=== PATIENT | female | born 1985 | race Caucasian/White ===

== ENCOUNTER 2025-07-23 23:52 | Emergency (ER) | payer OTHER, SELFPAY ==
[2025-07-23 23:53] VITALS: PULSE 97; RESP 18; TEMP 36.2; O2SAT 100
[2025-07-24 00:29] LABS: Alanine Aminotransferase 11 U/L (6-35); Albumin Level 3.9 g/dL (3.5-5.1); Alkaline Phosphatase 139 U/L (38-126); Anion Gap 7 mmol/L (4-12); Aspartate Amino Transferase 20 U/L (14-36); Bilirubin,Total 0.4 mg/dL (0.2-1.3); Blood Urea Nitrogen 11 mg/dL (7-17); Calcium 8.8 mg/dL (8.4-10.2); Carbon Dioxide 17 mmol/L (22-30); Chloride 107 mmol/L (98-107); Estimated CRCL calculation 113 ml/min; Estimated Glomerular Filt Rate > 60; Glucose 104 mg/dL (65-110); Potassium 3.9 mmol/L (3.4-5.0); Sodium 131 mmol/L (137-145); Total Protein 7.6 g/dL (6.3-8.2)
[2025-07-24 00:41] LABS: Hematocrit 33.2 % (37.0-47.0); Hemoglobin 11.2 g/dL (12.0-15.0); Immature Granulocyte Percent A 2.4 % (0-0.5); Lymphocytes Absolute Auto 2.37 K/mm3 (0.9-3.2); Mean Corpuscular HGB Conc 33.7 g/dl (32-36); Mean Corpuscular Hemoglobin 33.1 pg (26-34); Mean Corpuscular Volume 98.2 fl (80-100); Nucleated Red Blood Cells Absolute Auto 0.000 K/mm3 (0.0-0.012); Nucleated Red Blood Cells Perc 0.0 % (0.0-0.2); Platelet Count Result 353 k/mm3 (150-375); Red Blood Count 3.38 M/mm3 (4.2-5.4); White Blood Count 11.8 K/mm3 (4.5-10.0)
[2025-07-24] MEDS: HYDROmorphone HCL INJ (*CRX) 1 MG/ML SYR 0.5 MG IM (00:49)
[2025-07-24] MEDS: METOCLOPRAMIDE HCL INJ 10 MG/2 ML VIAL IM (00:53)
--- OUTSIDE RECORDS SUMMARY | 2025-07-24 00:56 | XMS_ITS | Clinical Summary ---
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 elderly multigravida Z36.2: Encounter for other screening follow-up O35.5XX0: Maternal care for (suspected) damage to fetus by drugs Procedures 67634: US Preg Uterus Follow Up [facility] PACS Anatomical Region Laterality Modality Other 07/11/2025 9:51 AM CDT Gaurav Park MD [facility] ORDERABLES Edited Result - Final * (ABNORMAL) AMPHETAMINE URINE CONFIRMATION (06/27/2025 10:38 AM CDT) Only the most recent of3 resultswithin the time period is included. Amphetamines Confirmation Urine Positive( A) 07/04/2025 2:07 AM CDT [facility] ([facility]) Comment: Please Note: 01 Amphetamine test includes Amphetamine and Methamphetamine. Amphetamine Positive A 01 Amphetamine Conf, MS, UR 2896 ng/mL Iyjquq=406 01 Methamphetamine Negative Buxdgc=925 01 Urine URINE / Unknown Collection / Unknown 06/27/2025 10:38 AM CDT 06/27/2025 11:46 AM CDT Narrative [facility] ([facility]) - 07/04/2025 2:07 AM CDT Performed at: 01 - [facility] [address] [facility], [place], [place] [id number] Admin Dir: Jurgen Linda PhD, Phone: [phone] Frida Ford APRN-WEAVER [facility] - URINE CHEMISTRY ORDERABLES Final Result [facility] ([facility]) [address] [place] [address] * SYPHILIS ANTIBODY CASCADING REFLEX (06/12/2025 12:12 PM CDT) Treponema pallidum Antibody Non Reactive Non Reactive 06/12/2025 1:22 PM CDT [facility] Comment: No Laboratory evidence of syphilis infection. Note: Circulating antibodies may be low or undetectable in early infection. If recent exposure is suspected, re-draw sample in 2-4 weeks and repeat testing. Blood BLOOD SPECIMEN / Unknown Venipuncture / Unknown 06/12/2025 12:12 PM CDT 06/12/2025 12:29 PM CDT us Frida Ford APRN-WE[facility] - SEROLOGY ORDERAB LES Final Result [facility] [address] [place] [address] * HIV-1 HIV-2 ANTIBODY + HIV P24 AG PANEL (06/12/2025 12:12 PM CDT) HIV1/2 Ab + P24 Ag Non Reactive Non Reactive 06/12/2025 1:22 PM CDT [facility] Blood BLOOD SPECIMEN / Unknown Venipuncture / Unknown 06/12/2025 12:12 PM CDT 06/12/2025 12:30 PM CDT Narrative [facility] - 06/12/2025 1:22 PM CDT No Laboratory evidence of HIV infection. Frida Ford FILM OR VIDEOTAPE EDITOR-WEAVER [facility] - CHEMISTRY ORDERA BLES Final Result [facility] [address], [place] [id number] * HEPATITIS C RNA QUANTITATIVE (06/12/2025 12:12 PM CDT) [facility] Hepatitis C RNA PCR, Interp Not detected Not detected 06/14/2025 9:54 AM CDT [facility] Hepatitis C Quant by PCR, Log NA log IU/mL 06/14/2025 9:54 AM CDT [facility] Blood BLOOD SPECIMEN / Unknown Venipuncture / Unknown 06/12/2025 12:12 PM CDT 06/12/2025 12:29 PM CDT Narrative [facility] - 06/14/2025 9:54 AM CDT The Hepatitis C viral (HCV) RNA analysis utilized a serum sample, real-time reverse general internist and physician leader PCR, and is reported as Not Detected, Detected (<15 IU/mL), Quantity (IU/mL) or >100,000,000 IU/mL. The analytic sensitivity (LOD) of the assay is 15 IU/mL. The linear range is from 15 IU/mL to 100,000,000 IU/mL. Values less than 15 IU/mL are reported as Detected (<15 IU/mL). Values greater than 100,000,000 IU/mL are reported as >100,000,000 IU/mL. The detection/quantitation of HCV RNA in serum is based on the isolation of HCV RNA with reverse general internist and physician leader of genomic HCV RNA followed by real-time PCR in the presence of an unrelated RNA internal control. The internal control ensures that RNA is isolated, and that no general significant inhibitors of the RT-PCR process are present. The analysis was performed using a [place]. FDA approved test methodology Matt hermilo HCV. Frida Ford FILM OR VIDEOTAPE EDITOR-WEAVER [facility] - CHEMISTRY ORDERA BLES Final Result [facility] [address] [place] [address], [facility] [phone] * (ABNORMAL) CBC W AUTO DIFFERENTIAL (06/12/2025 12:12 PM CDT) WBC 8.4 4.0 - 10.7 x10E9/L 06/12/2025 12:50 PM CDT [facility] RBC Count 3.25(L) 3.90 - 5.20 x10E12/L 06/12/2025 12:50 PM CDT [facility] Hemoglobin 10.9(L) 11.9 - 15.8 g/dL 06/12/2025 12:50 PM CDT [facility] Hematocrit 31.2(L) 34.8 - 46.1 % 06/12/2025 12:50 PM CDT [facility] MCV 96.0 80.0 - 98.0 fL 06/12/2025 12:50 PM CDT [facility] MCH 33.5 26.7 - 33.6 pg 06/12/2025 12:50 PM CDT [facility] MCHC 34.9 31.7 - 36.3 g/dL 06/12/2025 12:50 PM CDT [facility] RDW-CV 13.8 11.3 - 14.8 % 06/12/2025 12:50 PM CDT [facility] Platelet Count 344 150 - 420 x10E9/L 06/12/2025 12:50 PM CDT [facility] MPV 9.7 7.8 - 11.4 fL 06/12/2025 12:50 PM CDT [facility] Neutrophil % 63.2 41.0 - 74.0 % 06/12/2025 12:50 PM CDT [facility] Lymphocyte % 27.2 17.0 - 47.0 % 06/12/2025 12:50 PM CDT [facility] Monocyte % 6.7 3.0 - 11.0 % 06/12/2025 12:50 PM CDT [facility] Eosinophil % 1.3 0.0 - 7.0 % 06/12/2025 12:50 PM CDT [facility] Basophil % 0.5 0.0 - 1.6 % 06/12/2025 12:50 PM CDT [facility] Immature Granulocytes % 1.1(H) 0.0 - 1.0 % 06/12/2025 12:50 PM CDT [facility] Neutrophil Absolute 5.33 1.60 - 7.50 x10E9/L 06/12/2025 12:50 PM CDT [facility] Lymphocyte Absolute 2.29 1.00 - 4.40 x10E9/L 06/12/2025 12:50 PM CDT [facility] Monocyte Absolute 0.56 0.15 - 1.00 x10E9/L 06/12/2025 12:50 PM CDT [facility] Eosinophil Absolute 0.11 0.00 - 0.60 x10E9/L 06/12/2025 12:50 PM CDT [facility] Basophil Absolute 0.04 0.00 - 0.13 x10E9/L 06/12/2025 12:50 PM CDT [facility] Blood BLOOD SPECIMEN / Unknown Venipuncture / Unknown 06/12/2025 12:12 PM CDT 06/12/2025 12:29 PM CDT Frida Ford FILM OR VIDEOTAPE EDITOR-WEAVER [facility] - HEMATOLOGY ORDER JOYCE Final Result [facility] [address] [place] [address] * (ABNORMAL) COMPREHENSIVE METABOLIC PANEL (06/12/2025 12:05 PM CDT) Glucose 122(H) 70 - 99 mg/dL 06/12/2025 1:07 PM CDT [facility] Sodium 136 136 - 145 mmol/L 06/12/2025 1:07 PM CDT [facility] Potassium 3.5 3.5 - 5.1 mmol/L 06/12/2025 1:07 PM CDT [facility] Chloride 107 98 - 107 mmol/L 06/12/2025 1:07 PM CDT [facility] CO2 19(L) 22 - 29 mmol/L 06/12/2025 1:07 PM CDT [facility] Calcium 8.8 8.4 - 10.4 mg/dL 06/12/2025 1:07 PM T [facility] Anion Gap 10 6 - 16 mmol/L 06/12/2025 1:07 PM CDT [facility] BUN 9 5.3 - 18.7 mg/dL 06/12/2025 1:07 PM CDT [facility] Creatinine 0.64 0.57 - 1.11 mg/dL 06/12/2025 1:07 PM T [facility] Alkaline Phosphatase 82 40 - 150 U/L 06/12/2025 1:07 PM T [facility] ALT 7 6 - 57 U/L 06/12/2025 1:07 PM T [facility] AST 13 10 - 48 U/L 06/12/2025 1:07 PM T [facility] Protein Total 6.9 6.4 - 8.3 gm/dL 06/12/2025 1:07 PM T [facility] Albumin 3.2 3.1 - 4.5 gm/dL 06/12/2025 1:07 PM [facility] Bilirubin Total 0.2 0.2 - 1.2 mg/dL 06/12/2025 1:07 PM [facility] eGFR by CKD-EPI >90 >=90 mL/min/1.7 3 m2 06/12/2025 1:07 PM [facility] Comment:Estimated Glomerular Filtration Rate (eGFR) calculated using the CKD-EPI Creatinine Equation (2020), per the National Kidney Foundation and [place] [employer] Neph[employer] recommendations. Blood BLOOD SPECIMEN / Unknown Venipuncture / Unknown 06/12/2025 12:05 PM CDT 06/12/2025 12:28 PM CDT us Frida Ford FILM OR VIDEOTAPE EDITOR-WEAVER [facility] - CHEMISTRY ORDERA BLES Final Result [facility] [address] [place] [address] * GLUCOSE CHALLENGE (06/12/2025 12:05 PM CDT) [facility] Glucose Challenge 122 64 - 140 mg/dL 06/12/2025 1:08 PM CDT [facility] Glucose Challenge Time 06/12/2025 1:08 PM CDT [facility] Blood BLOOD SPECIMEN / Unknown Venipuncture / Unknown 06/12/2025 12:05 PM CDT 06/12/2025 12:28 PM CDT Frida Mejiamaria del rosario FILM OR VIDEOTAPE EDITOR-WEAVER [facility]RE C[facility] - CHEMISTRY ORDERA BLES Final Result Performing Organization Address City/State/[facility] Co de Phone Number [facility] [address] [place] [address] * (ABNORMAL) CULTURE URINE (05/15/2025 3:03 PM CDT) [facility] Culture Urine >100,000 CFU/mL Escherichia coli(A) RAN 05/17/2025 6:09 AM CDT [facility] Urine URINE SPECIMEN OBTAINED BY CLEAN CATCH PROCEDURE / Unknown Collection / Unknown 05/15/2025 3:03 PM CDT 05/15/2025 3:11 PM CDT Narrative Organism Antibiotic Method Susceptibility Escherichia coli Amikacin RAN 4 ug/mL: Susceptible Escherichia coli Ampicillin RAN 4 ug/mL: Susceptible Escherichia coli Ampicillin-sulbactam RAN <=2 ug/mL: Susceptible Escherichia coli Cefazolin RAN <=4 ug/mL: See Comment* Escherichia coli Cefazolin-Urine (uncomplicated infections ONLY) RAN <=4 ug/mL: Susceptible Escherichia coli Cefepime RAN <=1 ug/mL: Susceptible Escherichia coli Ceftriaxone RAN <=1 ug/mL: Susceptible Escherichia coli Ciprofloxacin RAN >=4 ug/mL: Resistant Escherichia coli Gentamicin RAN <=1 ug/mL: Susceptible Escherichia coli Meropenem RAN <=0.25 ug/mL: Susceptible Escherichia coli Nitrofurantoin RAN <=16 ug/mL: Susceptible Escherichia coli Piperacillin-tazobactam RAN <=4 ug/mL: Susceptible Escherichia coli Tobramycin RAN <=1 ug/mL: Susceptible Escherichia coli Trimethoprim-sulfame thoxaz ole RAN >=320 ug/mL: Resistant Comment: *Cefazolin RAN of </=4 cannot distinguish between susceptible or intermediate for systemic breakpoints. If further defined interpretation is needed, call Microbiology and a disk diffusion test will be performed. Urine breakpoints for cefazolin should only be used when treating uncomplicated UTIs including men and women without urologic abnormality, kidney stones, stents, nephrostomy tubes, signs/symptoms of systemic illness, or pelvic/perineal pain in men. Cefazolin results can be used to predict susceptibility to oral cephalosporins - cephalexin, cefprozil, cefaclor, cefuroxime, cefdinir, and cefpodoxime. For complicated UTIs, use alternative cefazolin susceptibility result above. Frida Ford FILM OR VIDEOTAPE EDITOR-WEAVER [facility]RE CORD [facility] - MICROBIOLOGY ORD ERABLES Final Result [facility] [address] [place] [address], [facility] [phone] * PAP IG LB+HPV APTIMA (02/06/2025 2:25 PM CDT) Diagnosis Comment 02/12/2025 10:09 AM CDT [facility] ([facility]) Comment: NEGATIVE FOR INTRAEPITHELIAL LESION OR MALIGNANCY. THIS SPECIMEN WAS RESCREENED PART OF OUR VACUUM EXTRACTOR OPERATOR PROGRAM. Specimen Adequacy Comment 025 10:09 AM CDT [facility] ([facility]) Comment: Satisfactory for evaluation. Endocervical and/or squamous metaplastic cells (endocervical component) are present. Performed by Comment 02/12/2025 10:09 AM CDT [facility] ([facility]) Comment:Manjinder Nascimento chnologist ([facility]) QC Reviewed by Comment 02/12/2025 10:09 AM CDT [facility] ([facility]) Comment:Blu Collazo totechnologist ([facility]) Comment . 02/12/2025 10:09 AM CDT [facility] ([facility]) Note Comment 02/12/2025 10:09 AM CDT [facility] ([facility]) Comment: The Pap smear is a screening test designed to aid in the detection of premalignant and malignant conditions of the uterine cervix. It is not a diagnostic procedure and should not be used as the sole means of detecting cervical cancer. Both false-positive and false-negative reports do occur. IGLBP CPT Code Automation Comment 02/12/2025 10:09 AM CDT [facility] ([facility]) Comment: This liquid based ThinPrep(R) pap test was screened with the use of an image guided system. Human papillomavirus Aptima Negative Negative 02/12/2025 10:09 AM CDT [facility] ([facility]) Comment: This nucleic acid amplification test detects fourteen high-risk HPV types (16,18,31,33,35,39,45,51,52,56,58,59,66,68) without differentiation. Pathology/Cytolo gy ENTIRE ENDOCERVIX / Unknown Collection / Unknown 02/06/2025 2:25 PM CDT 02/06/2025 2:43 PM CDT Narrative [facility] ([facility]) - 02/12/2025 10:09 AM CDT Performed at: 01 - [address] [id number] Admin Dir: Gabi Campbell MD, Phone: [phone] Performed at: - [address] [id number] Admin Dir: Gabi Campbell MD, Phone: [phone] Specimen Comment: No. of containers..01 ThinPrep Vial Frida Ford FILM OR VIDEOTAPE EDITOR-WEAVER [facility]RE CORD LAB - PATHOLOGY/CYTOLO GY ORDERABLES Final Result [facility] ([facility]) [address] [place] [address] from Last 3 Months or Most Recently Relevant to Health Maintenance Insurance MEDICAID [facility] MEDICAID [employer] [facility] [place] MEDICAID [employer] [facility] [place] MED[place]ID [employer] [facility] [place] MEDICAID [facility] Advance Directives * Full Code (Latest Code Status on File) Date Activated Date Inactivated Comments 06/19/2024 5:34 PM 06/20/2024 12:35 PM * Full Code Date Activated Date Inactivated Comments 03/22/2022 11:01 PM 03/24/2022 1:27 PM * Full Code Date Activated Date Inactivated Comments 03/17/2022 9:16 AM 03/17/2022 3:16 PM * Full Code Date Activated Date Inactivated Comments 02/13/2022 4:04 PM 02/13/2022 7:08 PM * Full Code Date Activated Date Inactivated Comments 02/05/2022 5:16 PM 02/05/2022 6:29 PM Care Teams Coordinator Of Genetic Services Relationship Specialty Start Date End Date Wallace Vazquez MD [address] [place] [phone] PCP - General Obstetrics and Gynecology 11/04/23 Hollie Tovar LCSW Outpatient At Risk Paraprofessional 02/20/25
--- OUTSIDE RECORDS SUMMARY | 2025-07-24 00:56 | XMS_ITS ---
Author Organization Unknown ENCOUNTERS Encounter Performer Location Date Diagnosis Diagnosis Status Pre Admit [place] [id number] [place] [id number] Emergency [facility] [address] [place] [id number] *Note: Encounters from your own facility or health system may be excluded. Allergies, Adverse Reactions, Alerts Allergen Type Severity Identification Date Penicillins drug allergy 4 [id number] Medications Name Date Quantity Days Supplied GPI Number
--- OUTSIDE RECORDS SUMMARY | 2025-07-24 00:56 | XMS_ITS | Patient Health Record ---
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 benefits as well as alternative treatments as previously discussed and with the above recommended medications & other aspects of the treatment program. Agrees to return sooner if symptoms worsen or suicidal or homicidal ideations occur. Labs monitored by PCP. 12/05/2024 Screening for diabetes mellitus (ICD-10 - Z13.1) 12/05/2024 Screening for hyperlipidemia (ICD-10 - Z13.220) 01/02/2025 Medication management (ICD-10 - Z79.899) May self-administer medications or be administered own oral medications per [facility] protocols. Provided informed consent with understanding of side effects, adverse effects, risks and benefits as well as alternative treatments as previously discussed and with the above recommended medications & other aspects of the treatment program. Agrees to return sooner if symptoms worsen or suicidal or homicidal ideations occur. Labs monitored by PCP. 01/16/2025 Medication management (ICD-10 - Z79.899) May self-administer medications or be administered own oral medications per [facility] protocols. Provided informed consent with understanding of side effects, adverse effects, risks and benefits as well as alternative treatments as previously discussed and with the above recommended medications & other aspects of the treatment program. Agrees to return sooner if symptoms worsen or suicidal or homicidal ideations occur. Labs monitored by PCP. 01/25/2025 Screening for metabolic disorder (ICD-10 - Z13.228) 01/29/2025 (ICD-10 - Z33.1) 02/19/2025 (ICD-10 - Z33.1) Client is due around 09/07/2025. Follow treatment plan and all recommendations of curing pickling packer. 03/21/2025 (ICD-10 - Z33.1) Client is due around 09/07/2025. Follow treatment plan and all recommendations of curing pickling packer. 04/18/2025 (ICD-10 - Z33.1) Client is due around 09/07/2025. Follow treatment plan and all recommendations of curing pickling packer. 05/29/2025 (ICD-10 - Z33.1) Client is due around 09/07/2025. Follow treatment plan and all recommendations of curing pickling packer. 05/29/2025 Medication management (ICD-10 - Z79.899) May self-administer medications or be administered own oral medications per [facility] protocols. Provided informed consent with understanding of side effects, adverse effects, risks and benefits as well as alternative treatments as previously discussed and with the above recommended medications & other aspects of the treatment program. Agrees to return sooner if symptoms worsen or suicidal or homicidal ideations occur. 04/18/2025 Medication management (ICD-10 - Z79.899) May self-administer medications or be administered own oral medications per [facility] protocols. Provided informed consent with understanding of side effects, adverse effects, risks and benefits as well as alternative treatments as previously discussed and with the above recommended medications & other aspects of the treatment program. Agrees to return sooner if symptoms worsen or suicidal or homicidal ideations occur. 03/21/2025 Medication management (ICD-10 - Z79.899) May self-administer medications or be administered own oral medications per [facility] protocols. Provided informed consent with understanding of side effects, adverse effects, risks and benefits as well as alternative treatments as previously discussed and with the above recommended medications & other aspects of the treatment program. Agrees to return sooner if symptoms worsen or suicidal or homicidal ideations occur. 02/19/2025 Medication management (ICD-10 - Z79.899) May self-administer medications or be administered own oral medications per [facility] protocols. Provided informed consent with understanding of side effects, adverse effects, risks and benefits as well as alternative treatments as previously discussed and with the above recommended medications & other aspects of the treatment program. Agrees to return sooner if symptoms worsen or suicidal or homicidal ideations occur. 01/29/2025 Medication management (ICD-10 - Z79.899) 01/25/2025 Screening for thyroid disorder (ICD-10 - Z13.29) 12/05/2024 Exposure to potential infection (ICD-10 - Z20.9) 11/29/2024 Other JAGDEEP obtained for records from [employer]. Patient agrees to take medication as prescribed. Discussed medication side effects, adverse effects, risks, benefits, as well as interactions. Encouraged non-use of opioids and other illicit substances. Has naloxone. Discontinuing buprenorphine increases the risk of overdose upon return to illicit opioid use. Use of alcohol or benzodiazepines with buprenorphine increases the risk of overdose and . Education provided about safe storage of medications. Encouraged participation in recovery groups/counseling services. Contact office with questions or concerns. Agrees to return to office in 28 days for next injection. 12/27/2024 Other Discussed positive coping mechanisms. Patient agrees to take medication as prescribed. Discussed medication side effects, adverse effects, risks, benefits, as well as interactions. Encouraged non-use of opioids and other illicit substances. Has naloxone. Discontinuing buprenorphine increases the risk of overdose upon return to illicit opioid use. Use of alcohol or benzodiazepines with buprenorphine increases the risk of overdose and . Education provided about safe storage of medications. Encouraged participation in recovery groups/counseling services. Contact office with questions or concerns. Agrees to return in 28 days for next injection. Patient may self-administe r their own oral medications per [facility] Protocol. 01/23/2025 Other Provided patient with contact information for [facility]. Discussed option to switch to Subutex. Per [employer], The buprenorphine monoproduct has been recommended during to avoid any potential exposure to naloxone, especially if injected. However, recent studies that evaluated the use of the combination product buprenorphine with naloxone found no adverse effects, and outcomes were similar when compared with buprenorphine alone. 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 Patient agrees to take medication as prescribed. Discussed medication side effects, adverse effects, risks, benefits, as well as interactions. Encouraged non-use of opioids and other illicit substances. Has naloxone. Discontinuing buprenorphine increases the risk of overdose upon return to illicit opioid use. Use of alcohol or benzodiazepines with buprenorphine increases the risk of overdose and . Education provided about safe storage of medications. Encouraged participation in recovery groups/counseling services. Contact office with questions or concerns. Plan Of Treatment No Information Insurance Providers Payer Name Payer Address Payer Phone Subscriber Number Group Number Insured Name Patient Relationship to Insured Coverage Start Date Coverage End Date [facility] [employer] [facility] [address] [place] [address] [phone] [id number] Neli Felder Self - patient [facility] the insured [facility] [address] [place] [address] [id number] Neli Felder Self - patient is the insured Medications Administered Medication Instructions Date of Administration Dosage Notes Sublocade 11/29/2024 300 mg Front Desk Supervisor: Lulú Frye 11/29/2024 03:08:14 PM GEOSCIENCES PROFESSOR >Pt tolerated well. No s&S of adverse reaction. Sublocade 12/27/2024 300 mg Carline Ayala RN 12/27/2024 04:43:03 PM GEOSCIENCES PROFESSOR >pt tolerated well. Medical (General) History Medical History History ICD Code add and adhd bipolar anxiety Hep C antibodies depression Surgical History Surgery Date(Month/Year) Hospitalization History Reason Date(Month/Year) Hepatitis C 2004
--- NOTE | 2025-07-24 00:57 | PC.NURSE ---
Pt made aware need urine sample, pt provided with blanket.
[2025-07-24 01:33] LABS: Add Urine Microscopic? YES; Appearance Urine Clear (Clear); Glucose Urine UA Negative (Negative); Leukocyte Esterase Ur Trace LEU/UL (Negative); Nitrate Urine Negative (Negative); Specific Grav Ur 1.020 (1.001-1.035)
[2025-07-24 02:09] VITALS: BP 106/61; PULSE 96; RESP 16; O2SAT 97
[2025-07-24 02:12] VITALS: BP 106/61; PULSE 88; RESP 16; O2SAT 96
--- NOTE | 2025-07-24 06:17 | ED.ABDPAIN ---
HPI - Abdominal Pain General Chief Complaint: Abdominal Pain Stated Complaint: abd pain Time Seen by Provider: 07/24/25 00:25 History of Present Illness HPI narrative: 39-year-old female at 33 weeks presents here with severe left flank pain radiating to the front, feels like kidney stone, has had these in the past. Tried Tylenol without improvement and quite nauseous from pain Related Data Allergies Allergy/AdvReac Type Severity Reaction Status Date / Time Penicillins Allergy Severe Hives Verified 07/23/25 23:58 Review of Systems Review of Systems: All systems reviewed & are unremarkable except as noted in HPI and below Exam Narrative: EXAMINATION OF ORGAN SYSTEMS/BODY AREAS: Constitutional: Vital signs per nursing GENERAL: Moaning and crying from severe pain HEAD: Normal with no signs of head trauma. EYES: EOMI, conjunctiva normal ENT: Hearing grossly intact LUNGS: Nonlabored breathing. HEART: [Regular rate and rhythm] ABD: [Soft], gravid EXT: Normal range of motion SKIN: [No rashes or lesions.] NEURO: [Alert and oriented x 3. No gross focal sensory or strength deficits.] PSYCH: Normal affect Course Vital Signs Vital signs: Vital Signs Temperature 97.2 F L 07/23/25 23:53 Pulse Rate 97 07/23/25 23:53 Respiratory Rate 18 07/23/25 23:53 Pulse Oximetry 100 07/23/25 23:53 Oxygen Delivery Room Air 07/23/25 23:53 Temperature 97.2 F L 07/23/25 23:53 Pulse Rate 88 07/24/25 02:12 Respiratory Rate 16 07/24/25 02:12 Blood Pressure 106/61 07/24/25 02:12 Pulse Oximetry 96 07/24/25 02:12 Oxygen Delivery Room Air 07/23/25 23:53 MDM - Abdominal Pain MDM Narrative Medical decision making narrative: ED COURSE AND MEDICAL DECISION MAKIN-year-old female presenting to the emergency department for acute flank pain, symptoms are concerning for likely renal colic versus pyelonephritis. Urinalysis is ordered. Given her , I did discuss risks and benefits of pain medication with patient, she understands the risks of opiates in but given the severity of her pain is agreeable to anything. Reglan and Dilaudid given IM. Ultrasound at bedside shows intrauterine with good movement and heart rate. On re-evaluation, patient much more comfortable, very grateful, will follow-up with her OBGYN. Urinalysis thankfully does not show any signs of infection but just to be on the safe side I will put her on some Keflex. Patient is strongly advised to return to the emergency department for any increasing pain not improving with medications, persistent nausea vomiting, fevers or chills or for any other concerns. Patient is comfortable with this plan and was discharged in fair condition. Procedures: Pulse oximetry interpretation - not hypoxic. Review of medical records. Lab Data 07/24/25 00:13 07/24/25 00:13 Labs: Lab Results 07/24/25 07/24/25 Range/Units 00:13 01:20 WBC 11.8 H (4.5-10.0) K/mm3 RBC 3.38 L (4.2-5.4) M/mm3 Hgb 11.2 L (12.0-15.0) g/dL Hct 33.2 L (37.0-47.0) % MCV 98.2 (80-100) fl MCH 33.1 (26-34) pg MCHC 33.7 (32-36) g/dl RDW 13.8 (11.5-14.5) % Plt Count 353 (150-375) k/mm3 MPV 9.6 (7.4-10.4) fl Immature Gran % (Auto) 2.4 H (0-0.5) % Neut % (Auto) 69.8 (45.5-73.1) % Lymph % (Auto) 20.1 (18.3-44.2) % [place] % (Auto) 6.6 (2.6-8.5) % Eos % (Auto) 0.6 (0-4.4) % Baso % (Auto) 0.5 (0.2-1.2) % Lymph # (Auto) 2.37 (0.9-3.2) K/mm3 [place] # (Auto) 0.8 H (0.1-0.6) K/mm3 Eos # (Auto) 0.1 (0-0.3) K/mm3 Baso # (Auto) 0.1 (0.0-0.1) K/mm3 Abs Immat Gran (auto) 0.28 H (0.00-0.031) K/mm3 Absolute Neuts (auto) 8.3 H (1.3-6.7) K/mm3 Absolute Nucleated RBC 0.000 (0.0-0.012) K/mm3 Nucleated RBC % 0.0 (0.0-0.2) % Sodium 131 L (137-145) mmol/L Potassium 3.9 (3.4-5.0) mmol/L Chloride 107 (98-107) mmol/L Carbon Dioxide 17 L (22-30) mmol/L Anion Gap 7 (4-12) mmol/L BUN 11 (7-17) mg/dL Creatinine 0.72 (0.7-1.0) mg/dL Estim Creat Clear Calc 113 ml/min Estimated GFR > 60 (59 - ) Glucose 104 (65-110) mg/dL Calcium 8.8 (8.4-10.2) mg/dL Total Bilirubin 0.4 (0.2-1.3) mg/dL AST 20 (14-36) U/L ALT 11 (6-35) U/L Alkaline Phosphatase 139 H (38-126) U/L Total Protein 7.6 (6.3-8.2) g/dL Albumin 3.9 (3.5-5.1) g/dL Urine Color Yellow (Yellow) Urine Appearance Clear (Clear) Urine pH 6.5 (5.0-9.0) Ur Specific [place] 1.020 (1.001-1.035) Urine Protein 1+ H (Negative) mg/dL Urine Glucose (UA) Negative (Negative) mg/dL Urine Ketones Trace H (Negative) mg/dL Ur Blood (Man) 2+ H (Negative) Urine Nitrate Negative (Negative) Urine Bilirubin Negative (Negative) Urine Urobilinogen 1.0 (<2.0) mg/dL Leukocyte Esterase Rfl Trace H (Negative) CAR/UL Urine RBC 21-50 H (0-2) /hpf Urine WBC 0-5 (0-3) /hpf Ur Squamous Epith Cells Few (Few) /hpf Urine Bacteria None seen /hpf Urine Casts 3-5 Discharge Plan Discharge Clinical Impression: Acute flank pain Patient Disposition: Home Condition: Stable Instructions: Flank Pain (ED) Additional Instructions: Please follow-up with your OBGYN. If you start having any further issues such as uncontrollable pain, nausea vomiting, fevers or chills, if you are unable to urinate or anything else concerning, come back to the ER. Patient Language: Japanese Prescriptions: New acetaminophen [Tylenol Extra Strength] 500 mg tablet 1,000 mg PO Q6H PRN (Reason: pain) Qty: 50 0RF oxycodone 5 mg capsule 5 mg PO Q6H PRN (Reason: pain) Qty: 15 0RF cephalexin 500 mg capsule 500 mg PO Q12H 5 Days Qty: 10 0RF Follow-up/Referrals: PHYSICIAN,AGRONOMY TEACHER [Primary Care Provider, Internal Medicine]
== END 2025-07-24 02:15 | disposition home or self-care (01) ==
PROVIDERS: Emergency Provider Emergency Medicine
DX: O26.893 Other specified pregnancy related conditions, third trimester (principal); R10.9 Unspecified abdominal pain; Z3A.33 33 weeks gestation of pregnancy
CPT/HCPCS: 36415; 80053; 81001; 85025; 96372; 99284; J1171; J2765